=== PATIENT | female | born 1990 ===

== ENCOUNTER 2023-02-14 14:52 | Outpatient (CLI) | payer OTHER ==
[2023-02-14 15:39] LABS: THYROID STIMULATING HORMONE 2.11 uIU/mL (0.34-5.60)
[2023-02-15 08:10] LABS: ESTRADIOL 49.1 pg/mL (.); PROGESTERONE 0.2 ng/mL (.)
[2023-02-15 19:08] LABS: SEX HORM BINDING GLOB SERUM 57.5 nmol/L (24.6-122.0)
== END 2023-02-14 14:53 | disposition home or self-care (01) ==
LOC: LAB 14:52
PROVIDERS: ATTEND Nurse Practitioner
DX: E28.2 Polycystic ovarian syndrome (principal)
CPT/HCPCS: 36415; 82397; 82627; 82670; 83001; 83002; 84143; 84144; 84270; 84402; 84403; 84443

== ENCOUNTER 2023-12-17 17:10 | Outpatient (CLI) | payer OTHER | END 2023-12-17 17:11 | disposition home or self-care (01) | LOC: LAB 17:10 | PROVIDERS: ATTEND Nurse Practitioner | DX: Z31.69 Encounter for other general counseling and advice on procreation (principal) | CPT/HCPCS: 36415; 84144 ==